=== PATIENT | female | born 1960 | race Caucasian/White ===

== ENCOUNTER → 2018-11-09 08:07 | Outpatient (CLI) | payer OTHER, SELFPAY ==
--- NOTE | 2018-11-09 08:09 | DI.US.S_ITS ---
PROCEDURE: US PELVIC COMPLETE INDICATIONS: Abnormal vaginal bleeding TECHNIQUE: Real-time scanning was performed of the pelvic organs, with image documentation. Additional endovaginal scanning was necessary due to incomplete visualization of the adnexal and endometrial structures by transabdominal scanning. COMPARISON: [facility], , PELVIC COMPLETE, 03/04/2013, 9:01. FINDINGS: Transabdominal scanning: Limited scanning through the kidneys shows no hydronephrosis. No pathologic free abdominal or pelvic fluid. Endovaginal scanning: Uterus: Uterus is normal in size at 7.9 x 4.6 x 5.4 cm. there is a 4 cm fibroid seen near the fundus, which obscures the endometrial stripe. Endometrial stripe is not well seen. Ovaries: Neither ovary is seen. No adnexal masses are seen. IMPRESSION: 4 cm fibroid seen. The endometrial stripe is obscured in this patient. In this postmenopausal patient with a history of abnormal bleeding, please consider a repeat examination or MRI for further evaluation, if clinically appropriate (assuming that there is no contraindication). Dictated by: Catrachito Chatman M.D. on 11/09/2018 at 10:18 Approved by: Catrachito Chatman M.D. on 11/09/2018 at 10:22
[2018-11-09 10:52] LABS: Alanine Aminotransferase 31 IU/L (9-52); Albumin 4.4 g/dL (3.5-5.0); Albumin Globulin Ratio 1.5 (1.0-2.8); Alkaline Phosphatase 57 U/L (38-126); Aspartate Aminotransferase 32 IU/L (14-36); BUN Creatinine Ratio 18.6 (6-22); Bilirubin Total 0.6 mg/dL (0.2-1.3); Blood Urea Nitrogen 13 mg/dL (7-17); Calcium 9.3 mg/dL (8.4-10.2); Carbon Dioxide 28 mmol/L (22-32); Chloride 102 mmol/L (98-107); Cholesterol 185 mg/dL (140-199); Estimated Glomerular Filt Rate > 60.0 mL/min (>60); Globulin 2.9 g/dL (1.7-4.1); Glucose 111 mg/dL (70-100); HDL Cholesterol 72 mg/dL (40-60); HEMOLYSIS < 15 (0-50); LDL Cholesterol Calculated 87 mg/dL (<100); Potassium 4.3 mmol/L (3.4-5.1); Sodium 138 mmol/L (137-145); Total Protein 7.3 g/dL (6.3-8.2); Triglycerides 130 mg/dL (35-150)
[2018-11-09 11:20] LABS: Thyroid Stimulating Hormone 2.68 uIU/mL (0.47-4.68)
[2018-11-09 11:36] LABS: Vitamin B12 464 pg/mL (239-931)
== END ==
PROVIDERS: PCP Physician Assistant; Visit Provider Physician Assistant
DX: N93.9 Abnormal uterine and vaginal bleeding, unspecified (principal); D25.9 Leiomyoma of uterus, unspecified; Z13.220 Encounter for screening for lipoid disorders; Z13.6 Encounter for screening for cardiovascular disorders; Z13.1 Encounter for screening for diabetes mellitus; F10.10 Alcohol abuse, uncomplicated
CPT/HCPCS: 36415; 76830; 76856; 80053; 80061; 82607; 84443

== ENCOUNTER 2020-06-19 19:22 | Emergency (ER) | payer OTHER, SELFPAY ==
[2020-06-19 19:30] VITALS: BP 146/89; PULSE 79; RESP 17; TEMP 35.9; O2SAT 98; BMI 29.6
--- NOTE | 2020-06-19 19:48 | DI.CT.S_ITS ---
PROCEDURE: CT CERVICAL SPINE WO CON INDICATIONS: Fall/concussion/injury/pain TECHNIQUE: Noncontrast 3 mm thick sections acquired from the skull base to the T4 level. Sagittal and coronal reformats were then constructed. For radiation dose reduction, the following was used: automated exposure control, adjustment of mA and/or kV according to patient size. COMPARISON: None. FINDINGS: Image quality: Excellent. Bones: No acute fractures. Visualized superior ribs are intact. Multilevel degenerative changes are seen in the cervical spine with degenerative endplate changes that are more prominent C5-6 and C6-7. There is mild grade 1 anterolisthesis of C7 on T1 that is likely related to chronic facet hypertrophy. Straightening of the normal cervical lordosis is most likely related to patient positioning. Soft tissues: Prevertebral soft tissues are normal in thickness. No paravertebral hematomas. No apical pneumothoraces. IMPRESSION: 1. No acute cervical spine fracture. 2. Grade 1 anterolisthesis of C7 on T1 is most likely chronic and related to degenerative facet arthropathy. 3. Additional multilevel [id number] degenerative changes throughout the cervical spine. Dictated by: Stanislav Arguello M.D. on 06/19/2020 at 20:23 Approved by: Stanislav Arguello M.D. on 06/19/2020 at 20:27
--- NOTE | 2020-06-19 19:48 | DI.CT.S_ITS ---
PROCEDURE: CT HEAD/BRAIN WO CON INDICATIONS: Fall/concussion/injury/pain TECHNIQUE: Noncontrast 4.5 mm thick angled axial sections acquired from the foramen magnum to the vertex, with coronal and sagittal reformats. For radiation dose reduction, the following was used: automated exposure control, adjustment of mA and/or kV according to patient size. COMPARISON: None. FINDINGS: Image quality: Excellent. CSF spaces: Basal cisterns are patent. No extra-axial fluid collections. The ventricles are symmetric in size and shape. Brain: No intracranial bleeds or masses. There is minimal cerebral volume loss for age, with resultant ventricular and sulcal prominence. Ling-white matter differentiation appears maintained. There is intracranial internal carotid artery atherosclerosis. Skull and face: A right parieto-occipital scalp hematoma is noted with mild overlying skin irregularity. There is a small amount of associated subcutaneous gas. No underlying skull fracture is seen. Sinuses: Minimal mucosal thickening is seen in the right maxillary sinus. The remaining visualized paranasal sinuses are clear. The mastoid air cells are clear. IMPRESSION: 1. No acute intracranial abnormality. 2. Right parieto-occipital scalp hematoma with associated subcutaneous gas. No underlying skull fracture is seen. Dictated by: Stanislav Arguello M.D. on 06/19/2020 at 20:19 Approved by: Stanislav Arguello M.D. on 06/19/2020 at 20:22
--- NOTE | 2020-06-19 19:58 | ED.HEATRA ---
HPI - Head Injury General Chief complaint: Head Injury Stated complaint: head injury Time Seen by Provider: 06/19/20 19:48 Source: patient and family Mode of arrival: Ambulatory History of Present Illness HPI Narrative: Patient is not on blood thinners. Patient brought in by her sister. Status fall. Patient was not there at the scene. Patient states she was on the dock and pulling on a rope to secure a boat. The rope was not completely tied down and no resistance caused her to fall backwards and hit the bone behind her. Complains of injury to the back of the head. Did have loss of consciousness, unknown duration. No nausea or vomiting. No vision changes at this time. It originally was blurry. Patient has been drinking gin. However sister at bedside states she is at baseline at this time. Very common: Joking and very talkative. Not repeating questions. No weakness numbness tingling. Denies denies any other injuries pelvis hips limbs back chest abdomen. Denies any neck pain. Has small 2 cm laceration at the occiput scalp. Does not not not want a tetanus shot. Patient states it caused her a lot of problems on her last tetanus shot between 5 and 10 years ago. Requiring hospitalization MD Complaint: head injury and fall Related Data Previous Rx's Medication Instructions Recorded amoxicillin 875 mg-potassium 1 tab PO BID #20 tab 08/09/19 clavulanate 125 mg tablet azithromycin 250 mg tablet See Rx Instructions PO .COMPLEX #6 08/19/19 tab benzonatate 100 mg capsule 100 mg PO TID PRN #30 cap 08/19/19 Allergies Allergy/AdvReac Type Severity Reaction Status Date / Time Sulfa (Sulfonamide Allergy Severe TONGUE Verified 08/19/19 16:53 Antibiotics) SWELLING/ITCHING Review of Systems Review of Systems Narrative: GENERAL: Denies chills, fatigue, malaise, fever, sweats. HEENT: Denies sinus pain, ear pain, sore throat, difficulty swallowing, dizziness. RESPIRATORY: Denies dyspnea, cough, wheezing, hemoptysis, sputum. CARDIOVASCULAR: Denies chest pain, palpitations, orthopnea, edema, GASTROINTESTINAL: Denies nausea, vomiting, abdominal pain, diarrhea, constipation, melena. : Denies dysuria, frequency, incontinence, hematuria, urinary retention. MUSCULOSKELETAL: denies weakness, joint pain, complains of bony/scalp pain SKIN: Denies rash, skin lesions NEUROLOGIC: Denies weakness, headache, numbness, change in speech, confusion, seizures, incoordination. PSYCHIATRIC: No concerning psychosocial issues. ROS Unobtainable: All systems reviewed & are unremarkable except as noted in HPI and below Patient History Medical History ADHD (Chronic) Anemia (Chronic) Endometriosis (Chronic) Fibroids (Chronic) Heavy menstrual period (Chronic) Seasonal allergies (Chronic) Shoulder pain (Chronic) Vertigo (Chronic) Surgical History Anesthesia (Resolved) History of oral surgery (Resolved) Social History Smoking Status: Never smoker Smoking Status: Never smoker alcohol intake frequency: 3 or more drinks per day Substance Use Type: does not use Exam Narrative Exam Narrative: GENERAL: patient appears stated age. Well-nourished, well-developed patient, in no distress, not toxic HEAD: 2 cm scalp laceration superficial face visualize no bone or muscle injury seen. No foreign body. Bloodless field. Located at the occiput scalp. Mild tenderness but no crepitus or step-off. EYES: Pupils equal round and reactive. Extraocular motions intact. No scleral icterus. No injection or drainage. ENT: Nose without bleeding, purulent drainage. Throat without erythema, tonsillar hypertrophy or exudate. Airway patent. NECK: Trachea midline. Non tender. Full active range of motion without any midline tenderness. No midline tenderness or step-off. CARDIOVASCULAR: Regular rate and rhythm without murmurs, gallops, or rubs. RESPIRATORY: Clear to auscultation. Breath sounds equal bilaterally. No wheezes, rales, or rhonchi. GASTROINTESTINAL: Abdomen soft, non-tender, nondistended. EXTREMITIES: No edema or joint tenderness. Nontender bilateral shoulders elbows wrists pelvis hips knees ankles. BACK: Nontender without deformity or crepitance. No flank tenderness. NEURO: AOx4. Steady self gait no foot drop. No ataxia. Steady Romberg. 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 Clear speech no facial droop light touch intact to bilateral face hands and legs. SKIN: No rash or erythema of visible areas PSYCH: Not anxious, is cooperative Initial Vital Signs Initial Vital Signs: Vital Signs Temperature 96.6 F L 06/19/20 19:30 Pulse Rate 79 06/19/20 19:30 Respiratory Rate 17 06/19/20 19:30 Blood Pressure 146/89 H 06/19/20 19:30 Pulse Oximetry 98 06/19/20 19:30 Procedures Laceration Repair Laceration 1: Site: scalp (Mid occipital) Size (cm): 2 Description: linear Depth: simple, single layer Local Anesthetic: lidocaine 1% and with epi Amount of anesthesia used (mL): 2 Pre-repair: wound explored and irrigated extensively (200 ml) Skin layer closed with: leatha (4 leatha) Course Orders Ordered: ED Orders 06/19/20 19:48 CT cervical spine wo con Stat CT head/brain wo con Stat Discontinued Medications Bacitracin (Bacitracin) 1 applic TOP NOW ONE Stop: 06/19/20 20:16 Last Admin: 06/19/20 20:19 Dose: 1 applic Documented by: MAYELA Reevaluation(s) Reevaluation #1: Reviewed imaging with patient and sister. No new complaints or issues. No altered mental status. Patient and sister desires discharge home Time: 20:43 Vital Signs Vital signs: Vital Signs - 8 hr 06/19/20 19:30 06/19/20 20:20 06/19/20 20:51 Temperature 96.6 F L Pulse Rate 79 67 72 Respiratory Rate 17 18 Blood Pressure 146/89 H 127/71 125/71 Pulse Oximetry 98 98 99 MDM - Head Injury Differential Diagnosis Differential diagnosis: Likely closed head injury, concussion with loss of consciousness and other (Scalp laceration) Imaging Data CT scan - head: Radiologist's Impression: [place] [address] CT Scan Report Signed Patient: Maryann Borges LMR#: [id number] : 1960Acct:[id number] Age/Sex: 60 / FDate of Service: 06/19/20 Loc: ED Accession Number: [id number] Procedure: CT head/brain wo con Ordering Provider: Doroteo Albright MD PROCEDURE: CT HEAD/BRAIN WO CON INDICATIONS: Fall/concussion/injury/pain TECHNIQUE: Noncontrast 4.5 mm thick angled axial sections acquired from the foramen magnum to the vertex, with coronal and sagittal reformats. For radiation dose reduction, the following was used: automated exposure control, adjustment of mA and/or kV according to patient size. COMPARISON: None. FINDINGS: Image quality: Excellent. CSF spaces: Basal cisterns are patent. No extra-axial fluid collections. The ventricles are symmetric in size and shape. Brain: No intracranial bleeds or masses. There is minimal cerebral volume loss for age, with resultant ventricular and sulcal prominence. Ling-white matter differentiation appears maintained. There is intracranial internal carotid artery atherosclerosis. Skull and face: A right parieto-occipital scalp hematoma is noted with mild overlying skin irregularity. There is a small amount of associated subcutaneous gas. No underlying skull fracture is seen. Sinuses: Minimal mucosal thickening is seen in the right maxillary sinus. The remaining visualized paranasal sinuses are clear. The mastoid air cells are clear. IMPRESSION: 1. No acute intracranial abnormality. 2. Right parieto-occipital scalp hematoma with associated subcutaneous gas. No underlying skull fracture is seen. Dictated by: Stanislav Arguello M.D. on 06/19/2020 at 20:19 Approved by: Stanislav Arguello M.D. on 06/19/2020 at 20:22 CT - cervical spine: Radiologist's Impression: [place] [address] CT Scan Report Signed Patient: Maryann Borges LMR#: [id number] : 1960Acct:[id number] Age/Sex: 60 / FDate of Service: 06/19/20 Loc: ED Accession Number: [id number] Procedure: CT cervical spine wo con Ordering Provider: Doroteo Albright MD PROCEDURE: CT CERVICAL SPINE WO CON INDICATIONS: Fall/concussion/injury/pain TECHNIQUE: Noncontrast 3 mm thick sections acquired from the skull base to the T4 level. Sagittal and coronal reformats were then constructed. For radiation dose reduction, the following was used: automated exposure control, adjustment of mA and/or kV according to patient size. COMPARISON: None. FINDINGS: Image quality: Excellent. Bones: No acute fractures. Visualized superior ribs are intact. Multilevel degenerative changes are seen in the cervical spine with degenerative endplate changes that are more prominent C5-6 and C6-7. There is mild grade 1 anterolisthesis of C7 on T1 that is likely related to chronic facet hypertrophy. Straightening of the normal cervical lordosis is most likely related to patient positioning. Soft tissues: Prevertebral soft tissues are normal in thickness. No paravertebral hematomas. No apical pneumothoraces. IMPRESSION: 1. No acute cervical spine fracture. 2. Grade 1 anterolisthesis of C7 on T1 is most likely chronic and related to degenerative facet arthropathy. 3. Additional multilevel [id number] degenerative changes throughout the cervical spine. Dictated by: Stanislav Arguello M.D. on 06/19/2020 at 20:23 Approved by: Stanislav Arguello M.D. on 06/19/2020 at 20:27 MDM Narrative Medical decision making narrative: Appropriate for discharge home. No altered mental status. Awake alert oriented and at baseline according to sister. Sister is driving. No labs or alcohol level or drug screen indicated this time. Patient is at baseline. No slurred speech, no ataxia. Patient at baseline. Awake alert oriented x4 Discharge Plan Departure Patient Disposition: Home Clinical Impression: Concussion with loss of consciousness Qualifiers: Encounter type: initial encounter Qualified Code(s): S06.0X9A - Concussion with loss of consciousness of unspecified duration, initial encounter Laceration of occipital scalp Qualifiers: Encounter type: initial encounter Qualified Code(s): S01.01XA - Laceration without foreign body of scalp, initial encounter Discharge Date/Time: 06/19/20 20:52 Instructions: DI for Laceration Repair -- Leatha, DI for Closed Head Injury Activity Restrictions/Additional Instructions: No driving tonight. See family doctor in 7-10 days for removal of 4 leatha. May shower but knows emergent head under water. Apply thin layer of topical antibiotic to wound twice a day. Prescriptions: No Action amoxicillin-pot clavulanate [Augmentin] 875-125 mg tablet 1 tab PO BID Qty: 20 RF: 0 azithromycin [Zithromax] 250 mg tablet See Rx Instructions PO .COMPLEX Qty: 6 RF: 0 benzonatate [Tessalon Perles] 100 mg capsule 100 mg PO TID PRN (Reason: cough) Qty: 30 RF: 0 Referrals: Andreea Wilkinson PA-C [Primary Care Provider] -
[2020-06-19] MEDS: BACITRACIN OINT 0.9 GM PCKT 1 APPLIC TOP (20:19)
[2020-06-19 20:20] VITALS: BP 127/71; PULSE 67; RESP 18; O2SAT 98
[2020-06-19 20:51] VITALS: BP 125/71; PULSE 72; O2SAT 99
== END 2020-06-19 20:52 | disposition home or self-care (01) ==
PROVIDERS: Emergency Provider Emergency Medicine; PCP Physician Assistant
DX: S06.0X9A Concussion with loss of consciousness of unspecified duration, initial encounter (principal); S01.01XA Laceration without foreign body of scalp, initial encounter; W19.XXXA Unspecified fall, initial encounter
CPT/HCPCS: 12001; 70450; 72125; 99282; 99284

== ENCOUNTER 2021-07-10 09:44 | Emergency (ER) | payer OTHER, SELFPAY ==
[2021-07-10 09:50] VITALS: BP 120/73; PULSE 85; RESP 18; O2SAT 96
[2021-07-10 09:56] VITALS: BP 120/73; PULSE 78; RESP 20; TEMP 36.5; O2SAT 96; BMI 28.8
[2021-07-10 10:00] VITALS: BP 111/65; PULSE 71; RESP 16; O2SAT 96
--- NOTE | 2021-07-10 10:07 | ED_ITS ---
HPI - URI/Sore Throat General Chief Complaint: Upper Respiratory Symptoms Stated Complaint: Cough, Achey, dizzy, fatigued x11 days Time Seen by Provider: 07/10/21 10:07 Source: patient Mode of arrival: Ambulatory Limitations: no limitations History of Present Illness HPI Narrative: This is a 61-year-old female who comes in with complaint of 11 days of cough, myalgias, fatigue as well as sweats particularly at night. Patient is unsure if she has had a fever. She denies any chest pain or shortness of breath. She has had a cough which has had some mild clear sputum occasionally. She denies any hemoptysis. Or color changes. Patient has not had any syncope. She has had nausea but no vomiting. She had not had any diarrhea until 1 episode today with no black or blood in it. She denies any abdominal pain. No swelling in her extremities. She denies any medical issues, states no daily medications. No major surgeries. She states she is allergic to sulfa, had a reaction to tetanus vaccine. No tobacco, she does normally drink alcohol but has not for the last 11 days. She does not use any recreational drugs. She is accompanied by her significant other who also has similar symptoms. Patient is unvaccinated for coronavirus. Related Data Previous Rx's Medication Instructions Recorded amoxicillin 875 mg-potassium 1 tab PO BID #20 tab 08/09/19 clavulanate 125 mg tablet (Augmentin) azithromycin 250 mg tablet See Rx Instructions PO .COMPLEX #6 08/19/19 (Zithromax) tab benzonatate 100 mg capsule 100 mg PO TID PRN #30 cap 08/19/19 (Tessalon Perles) Allergies Allergy/AdvReac Type Severity Reaction Status Date / Time Sulfa (Sulfonamide Allergy Severe TONGUE Verified 08/19/19 16:53 Antibiotics) SWELLING/ITCHING Review of Systems Review of Systems ROS Unobtainable: All systems reviewed & are unremarkable except as noted in HPI and below Patient History Medical History (Updated 07/10/21 @ 11:03 by Dian Chase DO) ADHD Anemia Endometriosis Fibroids Heavy menstrual period Seasonal allergies Shoulder pain Vertigo Surgical History Anesthesia History of oral surgery Social History Smoking Status: Never smoker Smoking Status: Never smoker alcohol intake frequency: 3 or more drinks per day Substance Use Type: does not use Exam Narrative Exam Narrative: GEN: well nourished, well appearing female, alert and oriented x 3, patient appears to be in mild distress. HEENT: Atraumatic, pupils are equal round reactive to light, extraocular movements are intact, nares are clear. HEART: Regular rate and rhythm without murmur, clicks, rubs. LUNGS:Lungs clear to auscultation, no wheezes, rales, crackles, chest moves symmetrically, no tachypnea accessory muscle use. ABD:bowel sounds normal, soft, non-tender, no guarding, rebound, rigidity, no masses noted, no hepatosplenomegaly :No CVA tenderness MSCL: Non-tender, no muscle atrophy, muscles strength 5/5 upper and lower extremities, full range of motion, normal gait NEURO:CN 2-12 intact, sensation normal SKIN: No rash, erythema or other skin changes noted. Initial Vital Signs Initial Vital Signs: Vital Signs Pulse Rate 85 07/10/21 09:50 Respiratory Rate 18 07/10/21 09:50 Blood Pressure 120/73 07/10/21 09:50 Pulse Oximetry 96 07/10/21 09:50 Course Orders Ordered: ED Orders 07/10/21 10:13 COVID19 -Nasal swab/Pre-Proc Stat 07/10/21 10:16 XR chest 1V Stat Vital Signs Vital signs: Vital Signs - 8 hr 07/10/21 09:50 07/10/21 09:56 07/10/21 10:00 Temperature 97.7 F Pulse Rate 85 78 71 Respiratory Rate 18 20 16 Blood Pressure 120/73 120/73 111/65 Pulse Oximetry 96 96 96 07/10/21 10:30 07/10/21 11:00 Temperature Pulse Rate 72 68 Respiratory Rate Blood Pressure 110/62 110/67 Pulse Oximetry 96 95 MDM - URI/Sore Throat Lab Data Labs: Lab Results 07/10/21 Range/Units 10:13 SARS-CoV-2 (PCR) Positive H (Negative) Imaging Data Chest x-ray: Radiologist's Impression: [address] [address] XRay Report Signed Patient: Maryann Borges MR#: [id number] : 1960 Acct:[id number] Age/Sex: 61 / F Date of Service: 07/10/21 Loc: ED Accession Number: [id number] ?? Procedure: XR chest 1V Ordering Provider: Dian Chase D.O. PROCEDURE:? XR CHEST 1V ? INDICATIONS:? flu like symptoms, ? Covid ? TECHNIQUE:? One view of the chest was acquired.? ? COMPARISON:? [facility], CHEST 2 VIEW, 05/18/2015, 11:16. ? FINDINGS:? ? Surgical changes and devices:? None.? ? Lungs and pleura:? Biapical pleural thickening/scarring. ?Bilateral peripheral airspace opacities are seen in the lower lung zones.? No pleural effusions or pneumothorax.? ? Mediastinum:? Mediastinal contours appear normal.? Heart size is normal.? ? Bones and chest wall:? No suspicious bony lesions.? Overlying soft tissues appear unremarkable.? ? IMPRESSION:? Bilateral peripheral airspace opacities as detailed above, concerning for an atypical (viral) infectious process. ? ? Dictated by: Jonathan Silverman M.D. on 07/10/2021 at 10:45 ? ? Approved by: Jonathan Silverman M.D. on 07/10/2021 at 10:46?? MDM Narrative Medical decision making narrative: This is a 61-year-old female comes in with multiple symptoms consistent with COVID infection. Chest x-ray shows pneumonia and her COVID swab is positive. Vital signs here are reassuring. Return precautions. All questions answered. Discharge Plan Departure Patient Disposition: Home Clinical Impression: Pneumonia due to COVID-19 virus Instructions: DI for COVID-19 (Suspected or Confirmed ) Activity Restrictions/Additional Instructions: *You have been diagnosed with COVID infection and pneumonia on chest x-ray. If you wish you may obtain a pulse oximeter for use at home to monitor. Please return to the ER if your pulse oximeter shows an O2 saturation less than 92%. These are available on [employer] or local pharmacies. *What to do: * per recommendations from the CDC and the [facility] Department of Health * stay home except to get medical care. Restrict activities outside your home, except for getting medical care. Do not go to work, school, or public areas. Avoid using public transportation, ride sharing, or taxis. * separate yourself from other people in your home. * call ahead before visiting your doctor * Wear a face mask * Cover your coughs and sneezes * Clean your hands often * Avoid sharing household items * Clean all high-touch services every day * Monitor your symptoms and seek prompt medical attention if your illness is worsening, particularly with difficulty in breathing. Discussed continuing home isolation * for individuals with symptoms who are confirmed or suspected cases of COVID-19 and are directed to care for themselves at home, discontinue home isolation under the following conditions: 1. At least 72 hours have passed since recovery, defined as resolution of f ever without the use of fever reducing medications, and improvement in respiratory symptoms (cough, shortness of breath) AND, 2. At least 7 days have passed since symptoms 1st appeared Individuals with laboratory confirmed COVID-19 who have not had any symptoms may discontinue home isolation when at least 7 days have passed since the date of their 1st COVID-19 diagnostic test and have had no subsequent illness Prescriptions: No Action amoxicillin-pot clavulanate [Augmentin] 875-125 mg tablet 1 tab PO BID Qty: 20 RF: 0 azithromycin [Zithromax] 250 mg tablet See Rx Instructions PO .COMPLEX Qty: 6 RF: 0 benzonatate [Tessalon Perles] 100 mg capsule 100 mg PO TID PRN (Reason: cough) Qty: 30 RF: 0 Referrals: Andreea Wilkinson PA-C [Primary Care Provider] -
--- NOTE | 2021-07-10 10:16 | DI.RAD.S_ITS ---
PROCEDURE: XR CHEST 1V INDICATIONS: flu like symptoms, ? Covid TECHNIQUE: One view of the chest was acquired. COMPARISON: [facility], , CHEST 2 VIEW, 05/18/2015, 11:16. FINDINGS: Surgical changes and devices: None. Lungs and pleura: Biapical pleural thickening/scarring. Bilateral peripheral airspace opacities are seen in the lower lung zones. No pleural effusions or pneumothorax. Mediastinum: Mediastinal contours appear normal. Heart size is normal. Bones and chest wall: No suspicious bony lesions. Overlying soft tissues appear unremarkable. IMPRESSION: Bilateral peripheral airspace opacities as detailed above, concerning for an atypical (viral) infectious process. Dictated by: Jonathan Silverman M.D. on 07/10/2021 at 10:45 Approved by: Jonathan Silverman M.D. on 07/10/2021 at 10:46
[2021-07-10 10:30] VITALS: BP 110/62; PULSE 72; O2SAT 96
[2021-07-10 10:58] LABS: COVID19 -Nasal RAPID POSITIVE (Negative)
[2021-07-10 11:00] VITALS: BP 110/67; PULSE 68; O2SAT 95
== END 2021-07-10 11:17 | disposition home or self-care (01) ==
PROVIDERS: Emergency Provider Emergency Medicine; PCP Physician Assistant
DX: U07.1 COVID-19 (principal); J12.82 Pneumonia due to coronavirus disease 2019; R11.0 Nausea
CPT/HCPCS: 71045; 87635; 99283; C9803

== ENCOUNTER → 2021-10-18 09:00 | Outpatient (CLI) | payer OTHER, SELFPAY ==
[2021-10-18 09:53] LABS: Add Manual Diff / Slide Review NO; Basophils Absolute Auto 0 /uL (0-100); Basophils Percent Auto 0.4 % (0-2); Eosinophils Absolute Auto 100 /uL (0-450); Eosinophils Percent Auto 1.7 % (2-4); Hematocrit 36.8 % (36-46); Hemoglobin 12.5 g/dL (12.0-16.0); Lymphocytes Absolute Auto 1600 /uL (1100-4500); Lymphocytes Percent Auto 39.3 % (25-40); Mean Corpuscular Hemoglobin 30.3 PG (26-34); Mean Corpuscular Volume 89.1 fL (80-100); Monocytes Absolute Auto 400 /uL (0-900); Monocytes Percent Auto 8.8 % (3-14); Neutrophils Absolute Auto 2000 /uL (1500-7000); Neutrophils Percent Auto 49.8 % (50-75); Platelet Count 226 X10^3/uL (150-400); Red Blood Cell Count 4.13 X10^6/uL (4.0-5.2); Red Cell Distribution Width 13.5 % (11.6-14.8)
[2021-10-18 10:26] LABS: Alanine Aminotransferase 21 IU/L (<35); Albumin 4.1 g/dL (3.5-5.0); Albumin Globulin Ratio 1.4 (1.0-2.8); Alkaline Phosphatase 52 U/L (38-126); Aspartate Aminotransferase 25 IU/L (14-36); Bilirubin Total 0.5 mg/dL (0.2-1.3); Blood Urea Nitrogen 18 mg/dL (7-17); Calcium 9.3 mg/dL (8.4-10.2); Carbon Dioxide 32 mmol/L (22-32); Chloride 105 mmol/L (98-107); Cholesterol 192 mg/dL (140-199); Estimated Glomerular Filt Rate > 60.0 mL/min (>60); Globulin 2.9 g/dL (1.7-4.1); Glucose 112 mg/dL (80-110); HDL Cholesterol 88 mg/dL (40-60); HEMOLYSIS < 15 (0-50); LDL Cholesterol Calculated 86 mg/dL (<100); Potassium 4.5 mmol/L (3.4-5.1); Sodium 140 mmol/L (137-145); Triglycerides 90 mg/dL (35-150)
[2021-10-18 10:55] LABS: TSH w/ Reflex to FT4 2.67 uIU/mL (0.47-4.68)
== END ==
PROVIDERS: PCP Family Medicine; Referring Provider Family Medicine; Visit Provider Family Medicine
DX: R00.2 Palpitations (principal); R01.1 Cardiac murmur, unspecified
CPT/HCPCS: 36415; 80053; 80061; 84443; 85025

== ENCOUNTER → 2021-11-01 07:42 | Outpatient (CLI) | payer OTHER, SELFPAY ==
--- NOTE | 2021-11-01 07:43 | DI.ECHO.S_ITS ---
[facility]---------+ [facility] +---------+ : : [address] : : : : [id number] : : : : Phone: [phone]+ Echocardiogram Report + + :Name: BLAKE VALENCIA Study Date: 11/01/2021 Height: 68 in : :[facility] ReadingLocation: Weight: 200 lb : : Gender: Female BSA: 2.0 m2 : :: 1960 Age: 61 yrs BP: 136/75 mmHg: :Reason For Study: Palpitations : :Ordering Physician: JILLIAN, : :HOMERO Performed By: Lawrence Mtz : :Referring: HOMERO WALSH : + + Interpretation Summary Borderline concentric left ventricular hypertrophy with ejection fraction 65- 70%. No significant valvular abnormality. Comparison is made with the echocardiogram of 02/09/2013, there has been no significant change. Procedure: A two-dimensional transthoracic echocardiogram with color flow and Doppler was performed. The study quality was technically adequate. Comparison is made with the echocardiogram of 02/09/2013. Aquisition of apical window technically difficult. The patient had a bundle branch block rhythm during the exam. Left Ventricle: There is borderline concentric left ventricular hypertrophy. The left ventricle is normal in size. The ejection fraction is estimated to be 65-70%. There are no focal wall motion abnormalities. Right Ventricle: The right ventricle is normal in size and function. Atria: The left atrial size is normal. Borderline right atrial enlargement. There is no Doppler evidence for an interatrial shunt. Mitral Valve: The mitral valve leaflets appear borderline thickened, but open well. There is trace mitral regurgitation. Aortic Valve: The aortic valve is trileaflet. The aortic valve opens well. No aortic regurgitation is present. Tricuspid Valve: The tricuspid valve is normal. There is trace tricuspid regurgitation. The right ventricular systolic pressure is estimated to be at least 30 mmHg based on an estimated right atrial pressure of 3 mm Hg. Pulmonic Valve: The pulmonic valve is normal in structure and function. Great Vessels: The aortic root is normal size. The ascending aorta is normal in size. The aortic arch is normal in size. The IVC is of normal diameter and collapses greater than 50% with a sniff. This suggests a low right atrial pressure of 3 mm Hg. Pericardium/ Pleura There is no pericardial effusion. There is an anterior echo-free space consistent with a fat pad. There is no pleural effusion. MMode/2D Measurements & Calculations LVIDd: 4.2 cm LVOT diam: 1.8 cm LVIDs: 3.1 cm Ao root diam: 2.6 cm FS: 27.0 % asc Aorta Diam: 3.1 cm IVSd: 0.85 cm Ao Arch Diam (Prox Trans): 2.5 cm LVPWd: 0.69 cm LV kumar. diameter/BSA (cm/m^2): 2.1 LV sys. diameter/BSA (cm/m^2): 1.5 LA A2 area: 19.4 cm2 RA long axis: 5.1 cm LA A4 area: 16.8 cm2 RA area: 15.5 cm2 LA length (vol): 5.5 cm RA vol: 39.7 ml LA vol: 50.3 ml RA : 19.4 ml/m2 LA vol index: 24.6 ml/m2 TAPSE: 2.3 cm Doppler Measurements & Calculations Ao V2 max: 205.0 cm/sec LVOT Max Emmanuel: 153.0 cm/sec Ao V2 mean: 161.3 cm/sec LV V1 max P.4 mmHg Ao max P.8 mmHg LV V1 VTI: 33.0 cm Ao mean P.8 mmHg GRAY(I,D): 1.9 cm2 Ao V2 VTI: 43.6 cm GRAY(V,D): 1.9 cm2 sev ratio: 0.76 GRAY indexed to BSA (cm^2/m^2): 0.94 MV E max emmanuel: 78.9 cm/sec TR max emmanuel: 258.3 cm/sec MV A max emmanuel: 85.3 cm/sec TR max P.7 mmHg MV E/A: 0.93 Med Peak E' Emmanuel: 8.3 cm/sec E/E' med: 9.5 Lat Peak E' Emmanuel: 6.1 cm/sec E/E' lat: 13.0 E/e' average: 11.3 MV dec time: 0.21 sec SV(LVOT): 83.8 ml Electronically signed by: Alley Fleming on Reading Physician:11/01/2021 08:58 AM
== END ==
PROVIDERS: PCP Family Medicine; Referring Provider Family Medicine; Visit Provider Family Medicine
DX: R01.1 Cardiac murmur, unspecified (principal); R00.2 Palpitations
CPT/HCPCS: 93306

== ENCOUNTER → 2021-11-06 13:48 | Outpatient (CLI) | payer OTHER, SELFPAY ==
--- NOTE | 2021-11-21 09:28 | PM.CARDMON.1 ---
Net Mender Report Referral & Results Date Patient Seen: 11/06/21 Requesting provider: Jg Henley Indication: Murmur Duration of monitoring (days): 8 Diary information: There were 6 patient triggered events and 0 patient diary entries Patient triggered events were variably associated with (within 45 seconds) sinus rhythm, and simple PACs and simple PVCs Data: Minimum heart rate identified was 52 beats per minute at 04:18 on 11/03/2021 Maximum sinus heart rate was 117 beats per minute at 16:45 on 11/07/2021 Maximum overall heart rate was 150 beats per minute at 22:13 on 11/08/2021 during a run of SVT Less than 1% of identified beats were ventricular or supraventricular ectopic in origin, which would classify them as rare. 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
== END ==
PROVIDERS: PCP Family Medicine; Referring Provider Family Medicine; Visit Provider Family Medicine
DX: R01.1 Cardiac murmur, unspecified (principal)
CPT/HCPCS: 93242; 93244

== ENCOUNTER → 2024-05-24 09:26 | Outpatient (CLI) | payer OTHER, SELFPAY ==
--- NOTE | 2024-05-24 09:27 | DI.RAD.S_ITS ---
PROCEDURE: XR HIP W PEL IF DONE ELIEZER MIN 4V INDICATIONS: Bilateral hip pain R > L; suspect osteoarthritis TECHNIQUE: AP pelvis with lateral view(s) of the bilateral hip(s). COMPARISON: None. FINDINGS: Bones: No fractures or dislocations. Pelvic ring appears intact. No suspicious bony lesions. Minimal arthritic changes within the hips bilaterally. Soft tissues: The visualized bowel gas pattern is normal. No suspicious soft tissue calcifications. IMPRESSION: Minimal arthritic changes within the hips bilaterally. Dictated by: Ary Cowan M.D. on 05/24/2024 at 17:38 Approved by: Ary Cowan M.D. on 05/24/2024 at 17:39
--- NOTE | 2024-05-24 09:27 | DI.RAD.S_ITS ---
PROCEDURE: XR LUMBAR SPINE MIN 4V INDICATIONS: Bilateral hip pain R > L; spasm LB suspect osteoarthritis TECHNIQUE: 5 views of the lumbar spine were acquired, including bilateral oblique views. COMPARISON: None. FINDINGS: Bones: 5 nonrib-bearing vertebrae are present. There is normal bony alignment. No vertebral body compression fractures. Mild bilateral L5-S1 degenerative facet disease noted.. Soft tissues: Overlying bowel gas pattern is normal. No suspicious soft tissue calcifications. Oblique images: No pars defects. IMPRESSION: Mild L5-S1 degenerative facet disease. Dictated by: Julian Espino M.D. on 05/25/2024 at 15:01 Approved by: Julian Espino M.D. on 05/25/2024 at 15:02
== END ==
PROVIDERS: PCP Family Medicine; Referring Provider Physician Assistant; Visit Provider Physician Assistant
DX: M47.817 Spondylosis without myelopathy or radiculopathy, lumbosacral region (principal); M25.551 Pain in right hip; M25.552 Pain in left hip; M54.10 Radiculopathy, site unspecified; M62.838 Other muscle spasm
CPT/HCPCS: 72110; 73522

== ENCOUNTER → 2024-05-27 08:51 | Outpatient (CLI) | payer OTHER, SELFPAY ==
[2024-05-27 10:02] LABS: Add Manual Diff / Slide Review NO; Basophils Absolute Auto 0 /uL (0-100); Basophils Percent Auto 0.3 % (0-2); Eosinophils Absolute Auto 100 /uL (0-450); Hematocrit 34.6 % (36-46); Hemoglobin 11.9 g/dL (12.0-16.0); Lymphocytes Absolute Auto 2000 /uL (1100-4500); Lymphocytes Percent Auto 35.8 % (25-40); Mean Corpuscular HGB Conc 34.5 % (30-36); Mean Corpuscular Hemoglobin 31.4 PG (26-34); Mean Corpuscular Volume 91.2 fL (80-100); Monocytes Absolute Auto 500 /uL (0-900); Monocytes Percent Auto 8.4 % (3-14); Neutrophils Absolute Auto 3100 /uL (1500-7000); Neutrophils Percent Auto 54.5 % (50-75); Platelet Count 284 X10^3/uL (150-400); Red Blood Cell Count 3.79 X10^6/uL (4.0-5.2); Red Cell Distribution Width 12.8 % (11.6-14.8); White Blood Cell Count 5.7 X10^3/uL (4.5-11.0)
[2024-05-27 10:17] LABS: Alanine Aminotransferase 17 IU/L (<35); Albumin 3.9 g/dL (3.5-5.0); Albumin Globulin Ratio 1.3 (1.0-2.8); Alkaline Phosphatase 68 U/L (38-126); Aspartate Aminotransferase 24 IU/L (14-36); BUN Creatinine Ratio 17.9 (6-22); Bilirubin Total 0.5 mg/dL (0.2-1.3); Blood Urea Nitrogen 14 mg/dL (7-17); Calcium 9.2 mg/dL (8.4-10.2); Carbon Dioxide 29 mmol/L (22-32); Chloride 101 mmol/L (98-107); Cholesterol 165 mg/dL (140-199); Estimated Glomerular Filt Rate > 60 mL/min (>60); Glucose 100 mg/dL (80-110); HDL Cholesterol 91 mg/dL (40-60); HEMOLYSIS < 15 (0-50); LDL Cholesterol Calculated 60 mg/dL (<100); Potassium 4.4 mmol/L (3.4-5.1); Sodium 135 mmol/L (137-145); Total Protein 6.9 g/dL (6.3-8.2); Triglycerides 72 mg/dL (35-150); Uric Acid 4.6 mg/dL (2.5-6.2)
[2024-05-27 10:44] LABS: Thyroid Stimulating Hormone 2.11 uIU/mL (0.47-4.68)
[2024-05-27 11:00] LABS: Erythrocyte Sedimentation Rate 33 MM/HR (0-20)
== END ==
PROVIDERS: PCP Family Medicine; Referring Provider Family Medicine; Visit Provider Family Medicine
DX: E66.9 Obesity, unspecified (principal); F10.10 Alcohol abuse, uncomplicated; R00.2 Palpitations; F43.29 Adjustment disorder with other symptoms
CPT/HCPCS: 36415; 80053; 80061; 84443; 84550; 85025; 85651; 86140

== ENCOUNTER → 2024-08-24 08:15 | Outpatient (CLI) | payer OTHER, SELFPAY ==
--- NOTE | 2024-08-24 08:18 | DI.MG.S_ITS ---
BILATERAL DIGITAL DIAGNOSTIC MAMMOGRAM 3D/2D: 08/24/2024 CLINICAL: Left breast pain. Comparison is made to exam dated: 12/18/2017 mammogram - [facility]. There are scattered areas of fibroglandular density (category b / 25%-50% glandular tissue). No significant masses, calcifications, or other findings are seen in either breast. IMPRESSION: NEGATIVE There is no mammographic abnormality seen in the left breast to correspond with the pain, however, clinical followup is recommended. There is no mammographic evidence of malignancy. Return to annual mammogram screening schedule is recommended. Based on the Tyrer Cuzick model (a risk assessment model) the patient's lifetime risk is 7.9% and her 10 year risk is 3.7%. According to the ACR, ACS, and NCCN guidelines, an annual breast MRI exam along with mammogram is recommended if the patient's lifetime risk is 20% or greater. This exam was interpreted at Station ID: [id number]. NOTE: For mammograms, a report in lay terms will be sent to the patient. Approximately 15% of breast malignancies will not be visualized mammographically. In the management of a palpable breast mass, a negative mammogram must not discourage biopsy of a clinically suspicious lesion. Electronically Signed By: Herminia Irene M.D. lk/:08/24/2024 09:32:39 letter sent: Clinical Evaluation ACR BI-RADS Category 1: Negative
[2024-08-24 10:18] LABS: Add Manual Diff / Slide Review NO; Basophils Absolute Auto 0 /uL (0-100); Basophils Percent Auto 0.3 % (0-2); Eosinophils Absolute Auto 0 /uL (0-450); Eosinophils Percent Auto 0.7 % (2-4); Hematocrit 37.3 % (36-46); Hemoglobin 12.6 g/dL (12.0-16.0); Lymphocytes Absolute Auto 2900 /uL (1100-4500); Lymphocytes Percent Auto 45.7 % (25-40); Mean Corpuscular HGB Conc 33.8 % (30-36); Mean Corpuscular Hemoglobin 30.9 PG (26-34); Mean Corpuscular Volume 91.5 fL (80-100); Monocytes Absolute Auto 600 /uL (0-900); Monocytes Percent Auto 9.3 % (3-14); Neutrophils Absolute Auto 2800 /uL (1500-7000); Platelet Count 253 X10^3/uL (150-400); Red Blood Cell Count 4.07 X10^6/uL (4.0-5.2); Red Cell Distribution Width 14.6 % (11.6-14.8); White Blood Cell Count 6.3 X10^3/uL (4.5-11.0)
[2024-08-24 10:52] LABS: Alanine Aminotransferase 28 IU/L (<35); Albumin Globulin Ratio 1.6 (1.0-2.8); Alkaline Phosphatase 48 U/L (38-126); Aspartate Aminotransferase 30 IU/L (14-36); BUN Creatinine Ratio 20.9 (6-22); Bilirubin Total 0.5 mg/dL (0.2-1.3); Blood Urea Nitrogen 19 mg/dL (7-17); C-Reactive Protein Quant < 0.5 mg/dL (<1.0); Calcium 9.1 mg/dL (8.4-10.2); Carbon Dioxide 28 mmol/L (22-32); Chloride 105 mmol/L (98-107); Estimated Glomerular Filt Rate > 60 mL/min (>60); Globulin 2.5 g/dL (1.7-4.1); Glucose 96 mg/dL (80-110); HEMOLYSIS < 15 (0-50); Potassium 4.6 mmol/L (3.4-5.1); Sodium 139 mmol/L (137-145); Total Protein 6.5 g/dL (6.3-8.2)
[2024-08-24 10:59] LABS: Rheumatoid Factor < 8.6 IU/mL (<12.0)
[2024-08-24 11:30] LABS: Erythrocyte Sedimentation Rate 7 MM/HR (0-20)
[2024-08-26 17:36] LABS: CCP Antibodies IgG/IgA 6 units (0-19)
== END ==
PROVIDERS: PCP Family Medicine; Referring Provider Internal Medicine Rheumatology; Visit Provider Family Medicine
DX: N64.4 Mastodynia (principal); M35.3 Polymyalgia rheumatica; Z79.899 Other long term (current) drug therapy
CPT/HCPCS: 36415; 77066; 80053; 85025; 85651; 86140; 86200; 86430; G0279

== ENCOUNTER → 2024-10-07 14:28 | Outpatient (CLI) | payer OTHER, SELFPAY ==
[2024-10-07 15:21] LABS: Add Manual Diff / Slide Review NO; Basophils Absolute Auto 0 /uL (0-100); Basophils Percent Auto 0.3 % (0-2); Eosinophils Absolute Auto 100 /uL (0-450); Eosinophils Percent Auto 1.7 % (2-4); Hematocrit 35.7 % (36-46); Hemoglobin 12.1 g/dL (12.0-16.0); Lymphocytes Absolute Auto 1300 /uL (1100-4500); Lymphocytes Percent Auto 27.4 % (25-40); Mean Corpuscular HGB Conc 33.9 % (30-36); Mean Corpuscular Volume 91.5 fL (80-100); Monocytes Absolute Auto 600 /uL (0-900); Monocytes Percent Auto 13.2 % (3-14); Neutrophils Absolute Auto 2800 /uL (1500-7000); Neutrophils Percent Auto 57.4 % (50-75); Platelet Count 202 X10^3/uL (150-400); White Blood Cell Count 4.9 X10^3/uL (4.5-11.0)
[2024-10-07 16:03] LABS: Alanine Aminotransferase 23 IU/L (<35); Albumin 4.1 g/dL (3.5-5.0); Albumin Globulin Ratio 1.6 (1.0-2.8); Alkaline Phosphatase 54 U/L (38-126); Aspartate Aminotransferase 25 IU/L (14-36); Bilirubin Total 0.5 mg/dL (0.2-1.3); Blood Urea Nitrogen 15 mg/dL (7-17); C-Reactive Protein Quant 1.4 mg/dL (<1.0); Calcium 9.3 mg/dL (8.4-10.2); Carbon Dioxide 26 mmol/L (22-32); Chloride 103 mmol/L (98-107); Estimated Glomerular Filt Rate > 60 mL/min (>60); Globulin 2.5 g/dL (1.7-4.1); Glucose 102 mg/dL (80-110); HEMOLYSIS < 15 (0-50); Potassium 4.1 mmol/L (3.4-5.1); Sodium 136 mmol/L (137-145); Total Protein 6.6 g/dL (6.3-8.2)
[2024-10-07 16:04] LABS: Rheumatoid Factor < 8.6 IU/mL (<12.0)
[2024-10-07 17:37] LABS: Erythrocyte Sedimentation Rate 7 MM/HR (0-20)
[2024-10-10 12:35] LABS: CCP Antibodies IgG/IgA 1 units (0-19)
== END ==
PROVIDERS: PCP Family Medicine; Referring Provider Internal Medicine Rheumatology; Visit Provider Internal Medicine Rheumatology
DX: M35.3 Polymyalgia rheumatica (principal)
CPT/HCPCS: 36415; 80053; 85025; 85651; 86140; 86200; 86430